=== PATIENT | male | born 1995 | race Hispanic/Latino ===

== ENCOUNTER 2024-12-26 16:31 | Emergency (ER) | payer SELFPAY | END 2024-12-26 18:46 | disposition home or self-care (01) | LOC: ERS 16:31 | DX: S16.1XXA Strain of muscle, fascia and tendon at neck level, initial encounter (principal); R29.700 NIHSS score 0; V43.52XA Car driver injured in collision with other type car in traffic accident, initial encounter | CPT/HCPCS: 99283 ==